=== PATIENT | female | born 1970 | race Hispanic/Latino ===

== ENCOUNTER 2023-07-04 12:44 | Emergency (ER) | payer OTHER ==
[~2023-07-04] VITALS: Ht 152.4 cm; Wt 81.6 kg
[2023-07-04 15:22] VITALS: BP 149/85; PULSE 72; RESP 18; O2SAT 100
[2023-07-04 15:26] LABS: BASOPHILS # (AUTO) 0.02 K/uL (0.00-0.20); BASOPHILS % (AUTO) 0.3 % (0.0-5.0); EOSINOPHILS # (AUTO) 0.09 K/uL (0.00-0.70); EOSINOPHILS % (AUTO) 1.6 % (0.0-8.0); HEMATOCRIT 41.6 % (36-48); IMMATURE GRANULOCYTE ABSOLUTE 0.03 K/uL (0-1); LYMPHOCYTES # (AUTO) 1.4 K/uL (1.0-4.8); LYMPHOCYTES % (AUTO) 25.2 % (21.0-51.0); MEAN CORPUSCULAR HEMOGLOBIN 27.7 pg (27.0-33.0); MEAN CORPUSCULAR HGB CONC 32.9 g/dL (32.0-36.0); MEAN CORPUSCULAR VOLUME 84.2 fL (79-99); MONOCYTES # (AUTO) 0.3 K/uL (0.1-1.0); MONOCYTES % (AUTO) 5.8 % (3.0-13.0); NEUTROPHILS # (AUTO) 3.8 K/uL (1.8-7.7); NEUTROPHILS % (AUTO) 66.6 % (40.0-77.0); PLATELET COUNT (AUTO) 275 K/uL (130-400); RED BLOOD CELL COUNT(AUTO) 4.94 MIL/uL (4.00-5.50); RED CELL DISTRIBUTION WIDTH 13.4 % (11.0-15.5); WHITE BLOOD COUNT (AUTO) 5.7 K/uL (4.8-10.8)
[2023-07-04 15:28] LABS: APPEARANCE,URINE CLOUDY (CLEAR); BILIRUBIN,URINE NEGATIVE (NEGATIVE); COLOR,URINE LIGHT-YELLOW (YELLOW); GLUCOSE, URINE (UA) NEGATIVE (NEGATIVE); KETONES,URINE NEGATIVE (NEGATIVE); LEUKOCYTE ESTERASE ,URINE NEGATIVE Leu/uL (NEGATIVE); NITRATE,URINE NEGATIVE (NEGATIVE); OCCULT BLOOD,URINE NEGATIVE (NEGATIVE); PH,URINE 5.5 (5.0-8.0); PROTEIN,URINE NEGATIVE (NEGATIVE); UROBILINOGEN,URINE 0.2 mg/dL (0.2-1.0)
[2023-07-04 15:34] LABS: ADD UA MICROSCOPIC YES
[2023-07-04 15:37] LABS: BACTERIA,URINE RARE /HPF (None Seen); MUCUS,URINE RARE LPF (None Seen); OTHER CASTS, URINE 1 /LPF (None Seen); SQUAMOUS EPITHELIAL CELL,UR FEW /HPF (0-2)
[2023-07-04 15:42] LABS: CREATININE 0.6 mg/dL (0.5-1.5); POTASSIUM 3.7 mmol/L (3.5-5.1)
[2023-07-04 15:47] LABS: ALBUMIN 3.8 g/dL (3.5-5.0); BILIRUBIN,TOTAL 0.3 mg/dL (0.2-1.0); TOTAL PROTEIN, SERUM 8.2 g/dL (6.0-8.3)
== END 2023-07-04 17:06 | disposition left against medical advice (07) ==
LOC: EDH 12:44
DX: R10.11 Right upper quadrant pain (principal); I10 Essential (primary) hypertension; M79.7 Fibromyalgia; M19.90 Unspecified osteoarthritis, unspecified site
CPT/HCPCS: 36415; 80053; 81001; 85025

== ENCOUNTER 2024-09-02 13:44 | Inpatient (IN) | payer SELFPAY ==
[~2024-09-02] VITALS: Ht 152.4 cm; Wt 79.4 kg
--- NOTE | 2024-09-02 13:54 | ERN ---
General Chief Complaint: Syncope Stated Complaint: SYNCOPE Time Seen by MD: 13:45 Source: patient, EMS History of Present Illness Initial Comments 53-year-old female with a history of hypertension coming in due to a syncopal episode. Per EMS patient states she was working outside and passed out. Allergies: Coded Allergies: No Known Drug Allergies (Unverified Allergy, Unknown, 07/04/23) Past Medical History Past Medical History: Arthritis, Fibromyalgia, Hypertension Past Surgical History: None ROS Dictation CONSTITUTIONAL: No chills, no fever, no weakness, no diaphoresis, no malaise. HEAD/FACE: No signs of trauma. EENT: No eye pain, no blurred vision, no tearing, no double vision, no ear pain, no ear discharge, no nose pain, no nasal congestion, no throat pain, no throat swelling, no mouth pain. RESPIRATORY: No cough, no orthopnea, no SOB, no stridor, no wheezing. CARDIOVASCULAR: No chest pain, no edema, no palpitations, no syncope. GASTROINTESTINAL/ABDOMINAL: No abdominal pain, no constipation, no diarrhea, no nausea, no vomiting. GENITOURINARY: No abnormal discharge, no dysuria, no frequent urination, no hematuria. No complaints of pain in the genitals. MUSCULOSKELETAL: No back pain, no gout, no joint pain, no joint swelling, no muscle pain, no muscle stiffness, no neck pain. INTEGUMENTARY: No change in color, no change in hair/nails, no dryness, no lesion, no lumps, no rash. NEUROLOGICAL/PSYCH: No anxiety, not depressed, no emotional problem, no headache, no numbness, no pre-existing deficit, no history of seizures, no tremors, no weakness. HEMATOLOGIC/LYMPHATIC: Not anemic, no history of blood clots, no apparent bleeding, no bruising, glands not swollen. All Systems Negative, Except as Noted. Physical Exam Physical Exam Dictation VITAL SIGNS: Reviewed. GENERAL APPEARANCE: Alert, oriented x3, no acute distress, obese. HEAD AND FACE: Non-traumatic. EYES: PERRL, pink conjunctivas, eyelid no trauma, anterior chamber clear. EARS: Pinnas intact and no signs of trauma or erythema. Ear canals clear and no discharge. TMs no erythema. NOSE: No discharge, no bleeding. OROPHARYNX: Mouth normal, teeth no caries, tongue pink. Pharynx clear, no erythema. Tonsils no exudates, no abscesses noted. Mucous membrane moist. NECK: Supple, non-tender, no thyromegaly, no masses, no JVD, no bruits. BREAST: Deferred. CHEST: No tenderness, no crepitus, no paradoxical movement, no retractions. LUNGS: Clear, well-ventilated, symmetric, no rales, no wheezing, no rhonchi, no stridor, good breath sounds bilaterally. HEART: Regular rate, regular rhythm, no murmur, no gallops. VASCULAR: No peripheral edema. ABDOMEN: Soft, positive bowel sounds, nondistended, no guarding, nontender, no rebound, no masses no hepatomegaly, no splenomegaly, no Izaguirre's sign, no hernias. RECTAL: Deferred. GENITAL: Deferred. NEUROLOGICAL: Normal speech, gross motor function intact, gross sensory function intact. MUSCULOSKELETAL: Neck nontender, full range of motion, back nontender, full range of motion. EXTREMITIES: Nontender, full range of motion. SKIN: Color pink, dry, no turgor, no rash, no lacerations, no abrasions, no con tusions. LYMPHATICS: Deferred. Results Laboratory and Microbiology Lab and Micro Result Laboratory Tests Test 09/02/24 14:03 09/02/24 16:28 White Blood Count 5.3 K/uL (4.8-10.8) Red Blood Count 4.50 MIL/uL (4.00-5.50) Hemoglobin 12.7 g/dL (12.0-16.0) Hematocrit 39.2 % (36-48) Mean Corpuscular Volume 87.1 fL (79-99) Mean Corpuscular Hemoglobin 28.2 pg (27.0-33.0) Mean Corpuscular Hemoglobin Concent 32.4 g/dL (32.0-36.0) Red Cell Distribution Width 13.7 % (11.0-15.5) Platelet Count 191 K/uL (130-400) Mean Platelet Volume 10.4 fL (7.5-10.5) Immature Granulocyte % (Auto) 1.3 % (0-1) H Neutrophils (%) (Auto) 72.2 % (40.0-77.0) Lymphocytes (%) (Auto) 19.3 % (21.0-51.0) L Monocytes (%) (Auto) 5.1 % (3.0-13.0) Eosinophils (%) (Auto) 1.3 % (0.0-8.0) Basophils (%) (Auto) 0.8 % (0.0-5.0) Neutrophils # (Auto) 3.8 K/uL (1.8-7.7) Lymphocytes # (Auto) 1.0 K/uL (1.0-4.8) Monocytes # (Auto) 0.3 K/uL (0.1-1.0) Eosinophils # (Auto) 0.07 K/uL (0.00-0.70) Basophils # (Auto) 0.04 K/uL (0.00-0.20) Absolute Immature Granulocyte (auto 0.07 K/uL (0-1) Nucleated Red Blood Cells 0.0 % (0.0-0.19) Prothrombin Time 10.1 SEC (9.6-11.6) Prothromb Time International Ratio 0.95 (0.85-1.15) Activated Partial Thromboplast Time 25.2 SEC (26.3-35.5) L Sodium Level 139 mmol/L (136-145) Potassium Level 3.8 mmol/L (3.5-5.1) Chloride Level 105 mmol/L (101-111) Carbon Dioxide Level 29 mmol/L (21-32) Blood Urea Nitrogen 15 mg/dL (7-18) Creatinine 0.7 mg/dL (0.5-1.0) Glomerular Filtration Rate Calc 102 mL/min (>90) Random Glucose 117 mg/dL (70-105) H Total Calcium 8.7 mg/dL (8.5-10.1) Magnesium Level 2.10 mg/dL (1.80-2.40) Total Creatine Kinase 52 U/L (21-232) # Troponin I High Sensitivity 4 ng/L (4-50) B-Type Natriuretic Peptide 6 pg/mL (0-100) Urine Color LIGHT-YELLOW (YELLOW) Urine Appearance CLEAR (CLEAR) Urine pH 6.5 (5.0-8.0) Urine Specific [place] 1.020 (1.001-1.031) Urine Protein 20 mg/dL (NEGATIVE) H Urine Glucose (UA) NEGATIVE mg/dL (NEGATIVE) Urine Ketones NEGATIVE mg/dL (NEGATIVE) Urine Occult Blood NEGATIVE (NEGATIVE) Urine Nitrate NEGATIVE (NEGATIVE) Urine Bilirubin NEGATIVE mg/dL (NEGATIVE) Urine Urobilinogen 0.2 mg/dL (0.2-1.0) Urine Leukocyte Esterase NEGATIVE [place]/uL Urine RBC 2-5 /HPF (0-1) H Urine WBC 2-5 /HPF (0-1) H Urine Squamous Epithelial Cells FEW /HPF (0-2) Urine Bacteria FEW /HPF (None Seen) Labs Reviewed?: Yes EKG/XRAY/US/CT/MRI X-RAY Comment [facility] [address] [place] [address] IMAGING REPORT Signed PATIENT: QUAN CUI MR#: [id number] : 1970 SEX: F AGE: 53 LOCATION: [facility] ORDER [id number] STATUS: [facility] ER REPORT#: [id number] SERVICE 1349 REASON: syncope ORDERING PHYSICIAN: ARIANA MCKINNEY MD PROCEDURE: CXR1VW - CHEST 1VW PORTABLE CHEST RADIOGRAPH INDICATION: syncope COMPARISON: None FINDINGS: Heart size is normal. The pulmonary vascularity and josey appear normal. No abnormal pulmonary parenchymal opacity or consolidation identified. No significant pleural effusion noted. No pneumothorax detected. IMPRESSION: No radiographic evidence for any acute cardiopulmonary process. DICTATED BY: GRETA HICKS MD DATE: 09/02/24 1607 ELECTRONICALLY SIGNED BY: GRETA HICKS MD DATE: 09/02/24 1610 [facility] MDM: Differential diagnosis: SYNCOPE, GENERALIZED BODY WEAKNESS, Rationale: Tests considered and ordered secondary to shared decision making include: Previous outside records reviewed: Old ER visits. Risk of complication and/or morbidity or mortality of patient management: None Medications-Per medication reconciliation Need for hospitalization: Patient does not meet criteria for hospitalization. Need for emergency major/minor surgery: No There are no social concerns with this patient. Prescription drug management Prescriptions will include symptomatic care Patient's prior external medical records from other ER visits were reviewed by me as indicated. Prior testing and results from previous visits were reviewed. Prior tests were taken into account with medical decision making and resource utilization, independent historian/historians were used to obtain complete medical history. I independently interpreted the test that were performed, results were reviewed by me and considered findings on radiology if ordered. Medical management and examination interpretation discussions were had by me with other qualified healthcare professionals as indicated for the patient's care. PATIENT IS A 53-YEAR-OLD FEMALE COMING IN TO BE EVALUATED AFTER SHE HAD A SYNCOPAL EPISODE. PATIENT STATES THAT THIS IS THE 2ND TIME SHE HAS HAD A SYNCOPAL EPISODE AND WAS CONCERNED SO DECIDED TO COME IN FOR FURTHER EVALUATIONS. LABORATORY WORKUP NEGATIVE FOR ACUTE FINDINGS. BECAUSE PATIENT HAS HAD TWO EPISODES OF SYNCOPE PATIENT WILL BE ADMITTED FOR ONGOING EVALUATION, PATIENT WILL BE ADMITTED UNDER THE CARE OF HOSPITALIST GROUP. ED Course Orders Procedure Category Date Status Time Cbc With Differential LAB 09/02/24 Complete 13:49 Prothrombin Time With LAB 09/02/24 Complete INR 13:49 B-Type Natriuretic LAB 09/02/24 Complete Peptide 13:49 Chest 1vw RAD 09/02/24 Resulted 13:49 12 Lead Ekg Tracing- EKG 09/02/24 Complete Technical 13:49 Lactated Ringers PHA 09/02/24 Complete 1000ml (Lactated 14:00 Magnesium LAB 09/02/24 Complete 13:49 Creatine Kinase, Total LAB 09/02/24 Complete 13:49 Troponin I High LAB 09/02/24 Complete Sensitivity 13:49 Urinalysis Profile LAB 09/02/24 Complete 13:49 Partial LAB 09/02/24 Complete Thromboplastin Time 13:49 Basic Metabolic Panel LAB 09/02/24 Complete 13:49 Current Medications Medications (Trade) Dose Ordered Sig/Umu Route PRN Reason Start Time Stop Time Status Last Admin Dose Admin Lactated Ringer's 1,000 ml @ 0 mls/hr ONCE ONCE IV 09/02/24 14:00 09/02/24 14:01 DC 09/02/24 16:08 Vital Signs Date Time Temp Pulse Resp B/P (MAP) Pulse Ox O2 Delivery O2 Flow Rate FiO2 09/02/24 16:27 97.9 66 18 138/85 100 Room Air* 0 21 09/02/24 15:25 97.9 68 18 141/71 100 Room Air* 0 21 09/02/24 13:47 16 160/110 98 Room Air DX & DISP Disposition: Inpatient Decision to Admit Time: 18:36 Departure Impression: Primary Impression: Syncope Additional Impression: Dehydration Condition: Stable Referrals: SELF,REFERRAL (PCP) ARIANA MCKINNEY MD Sep 02, 2024 13:54
--- NOTE | 2024-09-02 14:07 | EKG ---
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
[2024-09-02 14:10] LABS: BASOPHILS # (AUTO) 0.04 K/uL (0.00-0.20); BASOPHILS % (AUTO) 0.8 % (0.0-5.0); EOSINOPHILS # (AUTO) 0.07 K/uL (0.00-0.70); EOSINOPHILS % (AUTO) 1.3 % (0.0-8.0); HEMATOCRIT 39.2 % (36-48); IMMATURE GRANULOCYTE ABSOLUTE 0.07 K/uL (0-1); LYMPHOCYTES % (AUTO) 19.3 % (21.0-51.0); MEAN CORPUSCULAR HEMOGLOBIN 28.2 pg (27.0-33.0); MEAN CORPUSCULAR HGB CONC 32.4 g/dL (32.0-36.0); MEAN CORPUSCULAR VOLUME 87.1 fL (79-99); MONOCYTES # (AUTO) 0.3 K/uL (0.1-1.0); MONOCYTES % (AUTO) 5.1 % (3.0-13.0); NEUTROPHILS # (AUTO) 3.8 K/uL (1.8-7.7); NEUTROPHILS % (AUTO) 72.2 % (40.0-77.0); PLATELET COUNT (AUTO) 191 K/uL (130-400); RED CELL DISTRIBUTION WIDTH 13.7 % (11.0-15.5); WHITE BLOOD COUNT (AUTO) 5.3 K/uL (4.8-10.8)
[2024-09-02 14:19] LABS: CREATININE 0.7 mg/dL (0.5-1.0); POTASSIUM 3.8 mmol/L (3.5-5.1)
[2024-09-02 14:28] LABS: MAGNESIUM 2.1 mg/dL (1.80-2.40)
[2024-09-02 14:32] LABS: INR 0.95 (0.85-1.15); PROTHROMBIN TIME 10.1 SEC (9.6-11.6)
[2024-09-02 14:34] LABS: B-TYPE NATRIURETIC PEPTIDE 6 pg/mL (0-100); PARTIAL THROMBOPLASTIN TIME 25.2 SEC (26.3-35.5)
[2024-09-02] MEDS: LACTATED RINGERS 1000ML 1,000 ML IV ONE (16:08)
--- NOTE | 2024-09-02 16:10 | HMCIMG ---
PORTABLE CHEST RADIOGRAPH INDICATION: syncope COMPARISON: None FINDINGS: Heart size is normal. The pulmonary vascularity and josey appear normal. No abnormal pulmonary parenchymal opacity or consolidation identified. No significant pleural effusion noted. No pneumothorax detected. IMPRESSION: No radiographic evidence for any acute cardiopulmonary process.
[2024-09-02 16:37] LABS: APPEARANCE,URINE CLEAR (CLEAR); BILIRUBIN,URINE NEGATIVE (NEGATIVE); COLOR,URINE LIGHT-YELLOW (YELLOW); GLUCOSE, URINE (UA) NEGATIVE (NEGATIVE); KETONES,URINE NEGATIVE (NEGATIVE); LEUKOCYTE ESTERASE ,URINE NEGATIVE Leu/uL (NEGATIVE); NITRATE,URINE NEGATIVE (NEGATIVE); OCCULT BLOOD,URINE NEGATIVE (NEGATIVE); PH,URINE 6.5 (5.0-8.0); PROTEIN,URINE 20 mg/dL (NEGATIVE); UROBILINOGEN,URINE 0.2 mg/dL (0.2-1.0)
[2024-09-02 16:40] LABS: ADD UA MICROSCOPIC YES
[2024-09-02 16:43] LABS: BACTERIA,URINE FEW /HPF (None Seen); MUCUS,URINE RARE LPF (None Seen); SQUAMOUS EPITHELIAL CELL,UR FEW /HPF (0-2)
--- NOTE | 2024-09-02 18:41 | HP ---
History of Present Illness Reason for Visit: syncope History of Present Illness Ms. Forrest is a 53-year-old female that was seen and examined today on 09/02/2024. Patient is a good historian of personal health Patient states she came to the emergency department with a chief complaint of dizziness. Onset was today at 11:00 a.m.. Location is to head. Duration is on and off. Patient reports one episode. Character is described as sensation of passing out. There was no alleviating factors. There was no aggravating factors. Patient denies any associated chest pain or shortness and breath. Today in the emergency department CBC unremarkable, chemistry unremarkable, urinalysis unremarkable, chest x-ray unremarkable. Emergency room physician recommended that patient be admitted with a diagnosis of syncope. Past Medical History Past medical history: Arthritis, fibromyalgia, hypertension Past surgical history: Denies. Social history: Negative for smoking, alcohol use, drug use. Review of Systems General: No Fever, No Chills, No Night Sweats, No Fatigue, No Malaise, No Appetite, No Other HEENT: No Head Aches, No Visual Changes, No Eye Pain, No Ear Pain, No Dysphasia, No Sinus Congestion, No Post Nasal Drip, No Sore Throat, No Other Pulmonary: No Dyspnea, No Cough, No Pleuritic Chest Pain, No Other Cardiovascular: Lt Headedness; No: Chest Pain, Palpitations, Orthopnea, Paroxysmal Noc. Dyspnea, Edema, Other Gastrointestinal: No: Nausea, Vomiting, Abdominal Pain, Diarrhea, Constipation, Melena, Hematochezia, Other Genitourinary: No Dysuria, No Frequency, No Incontinence, No Hematuria, No Retention, No Other Musculoskeletal: No: other, neck pain, shoulder pain, arm pain, back pain, hand pain, leg pain, foot pain Skin: No Urticaria, No Rash, No Other Neurological: No: Weakness, Numbness, Incoordination, Change in speech, Confusion, Seizures, Other Allergies: Coded Allergies: No Known Drug Allergies (Unverified Allergy, Unknown, 07/04/23) Exam Vital Signs Vital Signs Date Time Temp Pulse Resp B/P (MAP) Pulse Ox O2 Delivery O2 Flow Rate FiO2 09/02/24 16:27 97.9 66 18 138/85 100 Room Air* 0 21 General Appearance: Alert, Oriented X3, Cooperative, No acute distress HEENT: Atraumatic, PERRLA, EOMI, Mucous membr. moist/pink Respiratory: Clear to auscultation, Normal air movement, NL respiratory effort Cardiovascular: Regular rate, Regular rhythm, Normal S1, Normal S2 Abdominal: Normal bowel sounds, Soft, No tenderness Extremities: No edema Skin: No significant lesion Neuro: Normal gait, Normal speech, Strength at 5/5 X4 ext, Sensation intact, Cranial nerves 3-12 NL Psych/Mental Status: Mental status NL, Mood NL, Thoughts/Content NL Assessment/Plan ASSESSMENT: [ Syncope, POA Hypertension Fibromyalgia Arthritis] PLAN: [ Admit patient to medical floor as inpatient status. Place patient on telemetry monitoring. Check orthostatic vital signs once per shift Fall precautions Ultrasound carotid Doppler, follow up with the results 2D echo, follow up with the results Neuro checks every 4 hours with the vital signs (check GCS, level of consciousness, extremity movement, pupil reaction, hand grasp strength, speech clarity) Consider resuming home medications once they are reconciled For now, Hydralazine 10 mg IV every 4 hours for systolic blood pressure greater than 160 mmHg GI prophylaxis, famotidine DVT prophylaxis, Lovenox This document was generated in part using voice recognition software, occasional wrong word or sound alike substitutions may have occurred due to the inherent limitations of voice recognition software. Read the chart carefully and recognize using context, where the substitutions have occurred. Although every effort was made to edit the content, panel wirer and typing errors may occur ATTESTATION BY PHYSICIAN I have seen and examined the patient. I reviewed the documentation, medical decision making, and treatment plan as noted by the mid-level provider above. I agree with the findings and plan of care. GALEN AGUILAR [facility] Sep 02, 2024 18:41
[2024-09-02] MEDS ORDERED: ondanSETRON 4MG INJ IV PRN (19:00)
[2024-09-02] MEDS ORDERED: acetaMINOPHEN 325 MG TAB PO PRN (19:00)
[2024-09-02] MEDS ORDERED: hydrALAZine 20MG/ML VIAL IV PRN (19:00)
[2024-09-02] MEDS ORDERED: morPHINE 2 MG SYG IVP PRN (19:00)
--- NOTE | 2024-09-02 20:03 | NUR ---
AT THIS TIME PATIENT IS STATING THAT SHE IS FEELING BETTER AND NO LONGER WISHES TO STAY IN THE HOSPITAL DIRECTED BY ED DOCTOR. PATIENT HAS BEEN EDUCATED ON THE PROS AND CONS OF LEAVING AGAINST MEDICAL ADVISE. AT THIS TIME SHE CONTINUES TO WANT TO LEAVE AGAINST MEDICAL ADVICE. PATIENT IS STABLE, ALL VS WNL, PER PATIENT FAMILY WILL PICK HER UP. LARS SCHMITT MADE AWARE.
[2024-09-02 20:12] VITALS: BP 130/88; PULSE 74; RESP 18; TEMP 97.8; O2SAT 100
[2024-09-03] MEDS ORDERED: ENOXAPARIN SODIUM 40 MG/0.4 ML SYRINGE SQ SCH (09:00)
[2024-09-03] MEDS ORDERED: FAMOTIDINE 20MG TAB PO SCH (09:00)
== END 2024-09-02 20:06 | disposition left against medical advice (07) | DRG 312 ==
LOC: EDH 13:44 → EDHIP 18:38
PROVIDERS: ADMIT Internal Medicine; ATTEND Internal Medicine
DX: R55 Syncope and collapse (principal); I10 Essential (primary) hypertension; E86.0 Dehydration; Z53.29 Procedure and treatment not carried out because of patient's decision for other reasons; M79.7 Fibromyalgia
CPT/HCPCS: 36415; 71045; 80048; 81001; 82550; 83735; 83880; 84484; 85025; 85610; 85730; 93005; G0378